=== PATIENT | female | born 1965 | race Caucasian/White ===

== ENCOUNTER 2017-01-05 15:40 | Emergency (ER) | payer OTHER ==
[~2017-01-05] VITALS: Wt 71.0 kg
[2017-01-05 16:50] LABS: URINE BLOOD (Dip) POC 1+ (NEGATIVE)
[2017-01-05 17:10] LABS: BASOPHIL # 0.1 10^3/ul (0.0-0.1); BASOPHILS % 0.6 % (0.0-2.0); EOSINOPHILS # 0.2 10^3/ul (0.0-0.5); EOSINOPHILS % 2.1 % (0.0-7.0); HEMATOCRIT 39.3 % (37.0-47.0); HEMOGLOBIN 12.9 g/dl (12.0-16.0); LYMPHOCYTES # 3.1 10^3/ul (0.8-2.9); MEAN CORPUSCULAR HEMOGLOBIN 29.7 pg (29.0-33.0); MEAN CORPUSCULAR HGB CONC 32.8 g/dl (32.0-37.0); MEAN CORPUSCULAR VOLUME 90.3 fl (82.0-101.0); MEAN PLATELET VOLUME 9.6 fl (7.4-10.4); MONOCYTE # 0.7 10^3/ul (0.3-0.9); MONOCYTES % 7.7 % (0.0-11.0); NEUTROPHIL # 4.6 10^3/ul (1.6-7.5); NEUTROPHILS % 53.2 % (39.0-77.0); PLATELET COUNT 318 10^3/UL (140-415); RED BLOOD COUNT 4.35 10^6/ul (4.20-5.40); RED CELL DISTRIBUTION WIDTH 13.3 % (11.5-14.5); WHITE BLOOD COUNT 8.6 10^3/ul (4.8-10.8)
[2017-01-05 17:34] LABS: ALBUMIN 4.6 g/dl (3.3-4.9); ALBUMIN/GLOBULIN RATIO 1.43; BILIRUBIN,INDIRECT 0.2 mg/dl (0-1.1); BILIRUBIN,TOTAL 0.2 mg/dl (0.2-1.3); CALCIUM 9.9 mg/dl (8.4-10.2); CREATININE 0.84 mg/dl (0.44-1.00); POTASSIUM 3.8 mmol/L (3.5-5.1); TOTAL PROTEIN 7.8 g/dl (6.1-8.1)
--- NOTE | 2017-01-05 18:17 | ERD ---
ER Documentation Chief Complaint Date/Time DATE: 01/05/17 TIME: 18:16 Chief Complaint BLOOD DURING WIPING HPI This 51-year-old female who presents the emergency department today complaining of blood in her stool and blood in the toilet for the past 15 days. States she does have some constipation. Denies any dizziness, abdominal pain, fevers or chills ROS All systems reviewed and are negative except as per history of present illness. Medications Home Meds Active Scripts Docusate Sodium* (Colace*) 100 Mg Capsule, 100 MG PO TID, #30 CAP Prov:BARRY ACHARYA PA-C 01/05/17 Polyethylene Glycol* (Miralax*) 17 Gm Powd.pack, 17 GM PO DAILY, #15 Prov:BARRY ACHARYA PA-C 01/05/17 Hydrocortisone Acetate (Anusol-Hc) 25 Mg Supp.rect, 1 SUPP AR BID Y for HEMORROID PAIN/ITCHING, #15 SUPP.RECT Prov:BARRY ACHAYRA PA-C 01/05/17 PMhx/Soc History of Surgery: Yes (LEFT EAR, ) Anesthesia Reaction: No Hx Neurological Disorder: No Hx Respiratory Disorders: No Hx Cardiac Disorders: No Hx Psychiatric Problems: No Hx Miscellaneous Medical Probl: No Hx Alcohol Use: No Hx Substance Use: No Hx Tobacco Use: No Smoking Status: Never smoker Physical Exam Vitals Vital Signs Date Time Temp Pulse Resp B/P Pulse Ox O2 Delivery O2 Flow Rate FiO2 01/05/17 15:49 98.0 60 18 112/71 99 Physical Exam Const: No acute distress Head: Atraumatic Eyes: Normal Conjunctiva ENT: Normal External Ears, Nose and Mouth. Neck: Full range of motion..~ No meningismus. Resp: Clear to auscultation bilaterally Cardio: Regular rate and rhythm, no murmurs Abd: Soft, non tender, non distended. Normal bowel sounds : Rectal exam with evidence of external hemorrhoids. Skin: No petechiae or rashes Back: No midline or flank tenderness Ext: No cyanosis, or edema Neur: Awake and alert Psych: Normal Mood and Affect Result Diagram: 01/05/17 1700 01/05/17 1700 Results 24 hrs Laboratory Tests Test 01/05/17 16:25 01/05/17 16:56 01/05/17 17:00 Stool Occult Blood NEGATIVE Bedside Urine pH (LAB) 5.5 Bedside Urine Protein (LAB) Negative Bedside Urine Glucose (UA) Negative Bedside Urine Ketones (LAB) Negative Bedside Urine Blood 1+ Bedside Urine Nitrite (LAB) Negative Bedside Urine Leukocyte Esterase (L Negative White Blood Count 8.610^3/ul Red Blood Count 4.3510^6/ul Hemoglobin 12.9g/dl Hematocrit 39.3% Mean Corpuscular Volume 90.3fl Mean Corpuscular Hemoglobin 29.7pg Mean Corpuscular Hemoglobin Concent 32.8g/dl Red Cell Distribution Width 13.3% Platelet Count 81599^3/UL Mean Platelet Volume 9.6fl Neutrophils % 53.2% Lymphocytes % 36.0% Monocytes % 7.7% Eosinophils % 2.1% Basophils % 0.6% Nucleated Red Blood Cells % 0.0/100WBC Neutrophils # 4.610^3/ul Lymphocytes # 3.110^3/ul Monocytes # 0.710^3/ul Eosinophils # 0.210^3/ul Basophils # 0.110^3/ul Nucleated Red Blood Cells # 0.010^3/ul Sodium Level 147mmol/L Potassium Level 3.8mmol/L Chloride Level 106mmol/L Carbon Dioxide Level 27mmol/L Anion Gap 18 Blood Urea Nitrogen 13mg/dl Creatinine 0.84mg/dl Glucose Level 94mg/dl Calcium Level 9.9mg/dl Total Bilirubin 0.2mg/dl Direct Bilirubin 0.00mg/dl Indirect Bilirubin 0.2mg/dl Aspartate Amino Transf (AST/SGOT) 25IU/L Alanine Aminotransferase (ALT/SGPT) 35IU/L Alkaline Phosphatase 83IU/L Total Protein 7.8g/dl Albumin 4.6g/dl Globulin 3.20g/dl Albumin/Globulin Ratio 1.43 Procedures/MDM This 51-year-old female presents to the emergency department today complaining of blood in her stool and in the toilet and when she wipes. Patient did show me a picture and it did appear to be a large amount of blood in the toilet. I did obtain laboratory work as well as a Hemoccult Laboratory workup shows no elevated white blood cell count. Her hemoglobin is within normal limits. Sodium is mildly elevated otherwise electro lites are within normal limits. Glucose is within normal limits. Liver enzymes within. UA shows 1+ blood otherwise negative for infection Hemoccult is negative Patient has no abdominal pain on physical exam and do not feel that she requires a abdomen CT at this time. Patient did have evidence of external hemorrhoids on physical exam although she denied any pain. Patient symptoms at this time most consistent with rectal bleeding that appears stable may be related to her hemorrhoids. I have explained this to her. I have explained to her that she does need to follow-up with her primary care doctor for referral to GI specialist and to get a colonoscopy especially given her age. Patient has a stable bleed at this time as her hemoglobin is within normal limits. There is no indication for transfusion. She was given a prescription for Anusol, MiraLAX and Colace. At this time the patient is stable for discharge and outpatient management. Patient should follow up with their PCP in the next 1-2 days. They may return to the emergency department sooner for any persistent or worsening of symptoms. Patient understood and agreed with the plan. Discussed the patient with Dr. Hung and he is in agreement with the plan. Departure Diagnosis: Primary Impression: Rectal bleeding Additional Impression: Hemorrhoids Hemorrhoid type: unspecified Qualified Code: K64.9 - Hemorrhoids, unspecified hemorrhoid type Condition: BARRY Enrique PA-C Jan 05, 2017 18:17
[2017-01-05] MEDS ORDERED: HYDR25SU23 PR (18:23)
[2017-01-05] MEDS ORDERED: DOCU-144 PO (18:24)
[2017-01-05] MEDS ORDERED: POLY17PO6 PO (18:24)
[2017-01-05 18:57] VITALS: BP 122/74; PULSE 56; RESP 18; TEMP 98
[2017-01-06 16:09] LABS: URINE BLOOD (Dip) POC 1+ (NEGATIVE)
== END 2017-01-05 18:57 | disposition home or self-care (01) ==
LOC: FTE 15:40
DX: K62.5 Hemorrhage of anus and rectum (principal); K64.4 Residual hemorrhoidal skin tags
CPT/HCPCS: 80053; 81003; 82270; 85025; 99284